=== PATIENT | male | born 1970 | race Caucasian/White ===

== ENCOUNTER 2020-09-17 13:52 | Emergency (ER) | payer BC ==
[2020-09-17] MEDS ORDERED: Ibuprofen 800 MG TAB ONE (14:15)
[2020-09-17] MEDS ORDERED: traMADol HCl 50 MG TAB ONE (14:15)
--- NOTE | 2020-09-17 15:06 | CT ---
CT LUMBAR SPINE 09/17/[address] of the lumbar spine was performed for evaluation following trauma. Axial slices were acquir ed followed by coronal and sagittal reconstructions. There is an old fracture of the anterior superior corner of L4. This can be seen on older CT scans. T here is no sign of acute injury to the lumbar spine. The disc spaces are normal in height. No vertebr al anomalies of concern were seen. There are the beginnings of some osteophytes on some of the verteb tracey. There is no sign of central canal stenosis or foraminal stenosis at any of the levels. Some of t he facet joints are starting to be a bit overgrown, particularly at L5-S1 on the left. Incidental finding on this study is a 7 mm calculus in the left kidney (kidneys seen incompletely). The patient is known to have renal calculi. IMPRESSION: 1. Old fracture of the anterior superior corner of L4 but no acute bony injuries were seen. 2. 7 mm nonobstructing calculus of the left kidney. Preliminary report called to Dr. Kuhn at [id number] on 09/17/20. POS: HOME
== END 2020-09-17 14:52 | disposition home or self-care (01) ==
LOC: BURERS 13:52
DX: N20.0 Calculus of kidney (principal); E03.9 Hypothyroidism, unspecified; I10 Essential (primary) hypertension; Z87.442 Personal history of urinary calculi; Z79.899 Other long term (current) drug therapy; V43.52XA Car driver injured in collision with other type car in traffic accident, initial encounter
CPT/HCPCS: 72131

== ENCOUNTER 2024-07-22 15:56 | Outpatient (CLI) | payer BC | END 2024-07-22 15:57 | disposition home or self-care (01) | LOC: BURRAD 15:56 | PROVIDERS: ATTEND Family Medicine | DX: Z04.1 Encounter for examination and observation following transport accident (principal); V89.2XXS Person injured in unspecified motor-vehicle accident, traffic, sequela ==